=== PATIENT | female | born 1955 | race African-American/Black ===

== ENCOUNTER → 2018-08-18 | Outpatient (CLI) | payer OTHER ==
--- NOTE | 2018-08-18 20:51 | KCIC ---
EXAM: Dual energy x-ray absorptiometry (DEXA). HISTORY: Postmenopausal female presents for osteoporosis screening. COMPARISON: None. TECHNIQUE: Dual energy x-ray absorptiometry of the lumbar spine and left hip was performed. Calculation of bone mineral density based on standard deviations above or below the expected young adult normal value (T-score) was completed. FINDINGS: The average bone mineral density in the 1st through 4th lumbar vertebrae is 0.918 g/cmxcm, corresponding with a T-score of -1.2. The average total bone mineral density in the left hip is 0.761 g/cmxcm, corresponding with a T-score of -1.5. IMPRESSION: Osteopenia measured at the lumbar spine and left hip. Note: Definitions established by the [employer] Organization: 1. Normal: T-score is -1.0 or above. 2. Osteopenia: T-score is between -1.0 and -2.5 . 3. Osteoporosis: T-score is -2.5 or below. Electronically signed by: Ju Escudero MD (08/18/2018 8:47 PM) [id number]
== END | disposition home or self-care (01) ==
LOC: KCIC DEXA 15:46
PROVIDERS: ATTEND Physician Assistant Surgical
DX: M85.89 Other specified disorders of bone density and structure, multiple sites (principal); Z78.0 Asymptomatic menopausal state
CPT/HCPCS: 77080